=== PATIENT | male | born 1980 | race Caucasian/White ===

== ENCOUNTER 2017-06-07 10:45 | Emergency (ER) | payer MEDICARE, MEDICAID ==
[2017-06-07 10:53] VITALS: BP 148/97
--- NOTE | 2017-06-07 11:30 | ER Document Report ---
ED Psych Disorder / Suicide - General Chief Complaint: Psych Problem Stated Complaint: PSYCH EVAL Time Seen by Provider: 06/07/17 11:21 Mode of Arrival: Ambulatory Information source: Patient TRAVEL OUTSIDE OF THE [place] IN LAST 30 DAYS: No - HPI Patient complains to provider of: Other - carissa Onset: Other - Pt .has h/o BPD with carissa and has been out of his seroquel for several days. Is unable to get up with his mental health provider and is requesting a refill today. He denies SI or HI - Related Data Allergies/Adverse Reactions: No Known Allergies Allergy (Unverified 06/07/17 10:51) Past Medical History - Social History Smoking Status: Current Every Day Smoker Chew tobacco use (# tins/day): No Frequency of alcohol use: Occasional Drug Abuse: None Family History: None Patient has suicidal ideation: No Patient has homicidal ideation: No Renal/ Medical History: Denies: Hx Peritoneal Dialysis Psychiatric Medical History: Reports: Hx Bipolar Disorder Surgical Hx: Negative Review of Systems - Review of Systems Constitutional: No symptoms reported Cardiovascular: No symptoms reported Respiratory: No symptoms reported Gastrointestinal: No symptoms reported Musculoskeletal: No symptoms reported Neurological/Psychological: See HPI -: Yes All other systems reviewed and negative Physical Exam - Vital signs Vitals: Temp Pulse Resp BP Pulse Ox 98.3 F 70 18 148/97 H 99 06/07/17 10:52 06/07/17 10:52 06/07/17 10:52 06/07/17 10:52 06/07/17 10:52 - General General appearance: Appears well In distress: None - Respiratory Respiratory status: No respiratory distress Breath sounds: Normal - Cardiovascular Rhythm: Regular Heart sounds: Normal auscultation - Abdominal Inspection: Normal Tenderness: Nontender - Neurological Neuro grossly intact: Yes Cognition: Normal - Psychological Associated symptoms: Normal affect, Normal mood Course - Vital Signs Vital signs: Temp Pulse Resp BP Pulse Ox 98.3 F 70 18 148/97 H 99 06/07/17 10:52 06/07/17 10:52 06/07/17 10:52 06/07/17 10:52 06/07/17 10:52 Discharge - Discharge Clinical Impression: Medication refill Condition: Stable Disposition: HOME, SELF-CARE Additional Instructions: rest, take meds as prescribed, return if worse Prescriptions: Quetiapine Fumarate [Seroquel] 400 mg PO BID #60 tablet Referrals: REGINA VENTURA MD [NO LOCAL MD] - Follow up as needed
== END 2017-06-07 11:29 | disposition home or self-care (01) ==
LOC: ER 10:45
DX: Z76.0 Encounter for issue of repeat prescription (principal); F31.9 Bipolar disorder, unspecified; T43.596A Underdosing of other antipsychotics and neuroleptics, initial encounter; Z91.128 Patient's intentional underdosing of medication regimen for other reason; Z91.14 Patient's other noncompliance with medication regimen; F17.200 Nicotine dependence, unspecified, uncomplicated
CPT/HCPCS: 99283

== ENCOUNTER 2017-07-10 12:52 | Emergency (ER) | payer MEDICARE, MEDICAID ==
--- NOTE | 2017-07-10 14:20 | ER Document Report ---
ED Psych Disorder / Suicide - General Chief Complaint: Psych Problem Stated Complaint: MEDICATION REFILL Time Seen by Provider: 07/10/17 14:16 Notes: Patient is here for medication refill. Patient says he has a history of bipolar disorder and has been out of his bipolar medicines and wishes to have them refilled. He has a couple of bottles of pills that are from his primary care provider and have one refill left. He wants refills of his Depakote 500 mg twice a day, Seroquel 400 mg twice a day and trazodone 50 mg at bedtime. He also takes medication for hypertension and does not need that refilled. Patient denies any problems or complaints. TRAVEL OUTSIDE OF THE [place] IN LAST 30 DAYS: No - Related Data Allergies/Adverse Reactions: No Known Allergies Allergy (Verified 07/10/17 13:01) Past Medical History - Social History Smoking Status: Current Every Day Smoker Chew tobacco use (# tins/day): No Frequency of alcohol use: Occasional Drug Abuse: None Family History: None, Reviewed & Not Pertinent Psychiatric Medical History: Reports: Hx Bipolar Disorder, Hx Depression - Immunizations Hx Diphtheria, Pertussis, Tetanus Vaccination: Yes Review of Systems - Review of Systems Notes: REVIEW OF SYSTEMS: CONSTITUTIONAL : Denies fever. EENT: Denies eye, ear, nose or mouth or throat pain or other symptoms. CARDIOVASCULAR: Denies chest pain. RESPIRATORY: Denies cough, chest congestion, or shortness of breath. GASTROINTESTINAL: Denies abdominal pain or nausea, vomiting, or diarrhea. GENITOURINARY: Denies difficulty or painful urinating, urinary frequency, blood in urine. MUSCULOSKELETAL: Denies back or neck pain. Denies joint pain or swelling. SKIN: Denies rash or skin lesions. NEUROLOGICAL: Denies LOC or altered mental status. Denies headache. Denies sensory loss or motor deficits. ALL OTHER SYSTEMS REVIEWED AND NEGATIVE. Physical Exam - Vital signs Vitals: Temp Pulse Resp BP Pulse Ox 98.8 F 88 20 147/100 H 98 07/10/17 12:58 07/10/17 12:58 07/10/17 12:58 07/10/17 12:58 07/10/17 12:58 Interpretation: Normal - Notes Notes: PHYSICAL EXAMINATION: GENERAL: Well-appearing, in no acute distress. Somewhat anxious. Pleasant, cooperative HEAD: Atraumatic, normocephalic. EYES: Pupils equal round and reactive to light, extraocular movements intact. NECK: Normal range of motion, supple. LUNGS: Breath sounds clear and equal bilaterally. HEART: Regular rate and rhythm without murmurs. ABDOMEN: Soft, nontender. No guarding or rebound. BACK: No tenderness throughout entire back. EXTREMITIES: Normal range of motion without pain. NEUROLOGICAL: Normal speech, normal gait. Normal sensory, motor, and reflex exams. Awake, alert, and oriented x3. Cranial nerves normal. PSYCH: Normal mood, normal affect. SKIN: Warm, dry, no rashes. Course - Re-evaluation Re-evalutation: 07/10/17 21:17 I explained to the patient that we are not the proper source for him to receive his monthly medication prescriptions. However, what he going to do? I wrote the patient a prescription for 30 day supply of the 3 medicines she needed. - Vital Signs Vital signs: Temp Pulse Resp BP Pulse Ox 98.7 F 68 19 128/96 H 100 07/10/17 14:23 07/10/17 14:23 07/10/17 14:23 07/10/17 14:23 07/10/17 14:23 Discharge - Discharge Clinical Impression: Bipolar disorder Condition: Stable Disposition: HOME, SELF-CARE Additional Instructions: Bipolar Disorder Bipolar disorder is also called manic-depressive disorder. Depression alternates with brain hyperactivity called carissa. Each phase lasts from several days to a few weeks. We don't know exactly what causes bipolar disorder , but it's treatable. During the "manic phase," you may feel elated and energetic. You may have racing thoughts, rapid speech, increased activity, and grandiose ideas. During this time, you may not realize how poor your judgement is. Inappropriate spending, drug abuse, excessive alcohol use, marriage problems, and irresponsible sexual behavior are common during the manic phase. During the "depressive phase," you might feel depressed, guilty, worthless , fatigued, and unable to concentrate. You might have thoughts of suicide. Good treatments are available for bipolar disorder. [place] is a classic drug for bipolar disorder, and is still often useful. If the manic phase is very mild, an antidepressant alone can be prescribed. If the manic phase is very severe, an antipsychotic medicine (such as Haldol) may be needed. The treatment must be matched to your symptoms, so it's important to work closely with your psychiatric care provider. Contact your physician, the hospital emergency center, crisis line, or your counsellor if you are losing control or having self-destructive thoughts. FOLLOW-UP CARE: If you have been referred to a physician for follow-up care, call the physician s office for an appointment as you were instructed or within the next two days. If you experience worsening or a significant change in your symptoms, notify the physician immediately or return to the Emergency Department at any time for re-evaluation. I am refilling your prescriptions for your 3 bipolar medications for a month. We do not customarily write prescriptions for these medications and certainly not for this quantity of these medications so you need to make arrangements to get someone else to write her prescriptions in the future. Prescriptions: Trazodone HCl [Desyrel 50 mg Tablet] 50 mg PO QHS #30 tablet Divalproex Sodium [Depakote] 500 mg PO BID #60 tablet. Quetiapine Fumarate [Seroquel] 400 mg PO BID #60 tablet Referrals: NANCY BRAY MD [Primary Care Provider] - Follow up as needed
[2017-07-10 14:31] VITALS: BP 128/96
== END 2017-07-10 14:25 | disposition home or self-care (01) ==
LOC: ER 12:52
DX: Z76.0 Encounter for issue of repeat prescription (principal); F31.9 Bipolar disorder, unspecified; T42.6X6A Underdosing of other antiepileptic and sedative-hypnotic drugs, initial encounter; T43.596A Underdosing of other antipsychotics and neuroleptics, initial encounter; T43.216A Underdosing of selective serotonin and norepinephrine reuptake inhibitors, initial encounter; Z91.128 Patient's intentional underdosing of medication regimen for other reason; Z91.14 Patient's other noncompliance with medication regimen; F17.200 Nicotine dependence, unspecified, uncomplicated; I10 Essential (primary) hypertension; Z79.899 Other long term (current) drug therapy
CPT/HCPCS: 99281

== ENCOUNTER 2020-03-28 02:06 | Inpatient (IN) | payer MEDICARE, MEDICAID ==
[2020-03-28] MEDS ORDERED: ONDANSETRON HCL INJ/PF 4 MG/2 ML SDV IV ONE (03:32)
[2020-03-28] MEDS ORDERED: NORMAL SALINE 1000 ML 1,000 ML IV ONE ×2 (03:32→04:07)
--- NOTE | 2020-03-28 03:34 | ER Document Report ---
ED GI/ - General Chief Complaint: Nausea/Vomiting/Diarrhea Stated Complaint: STOMACH ISSUES Time Seen by Provider: 03/28/20 03:11 Notes: Patient is a 39-year-old male that comes emergency department for chief complaint of vomiting and some upper abdominal discomfort. He states that over the past day or so he has vomited 15 times. He states he had one loose stool. He denies hematemesis or hematochezia. Denies fever. He states symptoms started after "I drank half a gallon of some nasty orange juice". He denies any other complaints including chest pain, flank pain, lower abdominal pain, recent travel, suspicious foods otherwise. He denies any daily medications except his Seroquel and Depakote. He states he has bipolar disorder. TRAVEL OUTSIDE OF THE [place] IN LAST 30 DAYS: No - Related Data Allergies/Adverse Reactions: No Known Allergies Allergy (Verified 07/10/17 13:01) Home Medications: depakote. seroquel. cymbalta. trazodone Past Medical History - General Information source: Patient - Social History Smoking Status: Current Every Day Smoker Frequency of alcohol use: None Drug Abuse: None Lives with: Family Family History: None, Reviewed & Not Pertinent Patient has homicidal ideation: No Renal/ Medical History: Denies: Hx Peritoneal Dialysis Psychiatric Medical History: Reports: Hx Bipolar Disorder, Hx Depression - Immunizations Hx Diphtheria, Pertussis, Tetanus Vaccination: Yes Review of Systems - Review of Systems Constitutional: See HPI EENT: No symptoms reported Cardiovascular: No symptoms reported Respiratory: No symptoms reported Gastrointestinal: See HPI Genitourinary: No symptoms reported Male Genitourinary: No symptoms reported Musculoskeletal: No symptoms reported Skin: No symptoms reported Hematologic/Lymphatic: No symptoms reported Neurological/Psychological: No symptoms reported Physical Exam - Vital signs Vitals: Temp 98.0 F 03/28/20 02:07 - Notes Notes: GENERAL: Patient is slightly ill-appearing with dark cycles under his eyes but he is awake, interactive, does not appear to be in distress HEAD: Normocephalic, atraumatic. EYES: Pupils equal, round, and reactive to light. Extraocular movements intact. ENT: Oral mucosa parched, tongue midline. Oropharynx unremarkable. Airway patent. NECK: Full range of motion. Supple. Trachea midline. No lymphadenopathy. LUNGS: Clear to auscultation bilaterally, no wheezes, rales, or rhonchi. No respiratory distress. Non-tender chest wall. HEART: Regular rate and rhythm. No murmur ABDOMEN: Soft, non-tender. Non-distended. Bowel sounds present in all 4 quadrants. GENITOURINARY: Deferred EXTREMITIES: Moves all 4 extremities spontaneously. No edema, normal radial and dorsalis pedis pulses bilaterally. No cyanosis. BACK: no cervical, thoracic, lumbar midline tenderness. No saddle anesthesia, normal distal neurovascular exam. Moves all extremities in full range of motion. NEUROLOGICAL: Alert and oriented x3. Normal speech. Cranial nerves II through XII grossly intact. Strength 5/5 in all extremities. PSYCH: Slightly bizarre mood and affect SKIN: Slightly pale Course - Re-evaluation Re-evalutation: Patient is slightly ill-appearing but he is not tachycardic, hypotensive, or febrile. His abdomen is soft and benign. He has dark circles under his eyes and he has parched mucous membranes but otherwise his exam is unremarkable. CBC unremarkable. Chemistry shows marked hyperglycemia in the 900s, anion gap is 35, potassium is 5.4, bicarbonate is only 15. Venous blood gas obtained and shows pH of 7.19. Bicarbonate is low on venous blood gas. Clinical presentation and work-up is consistent with new onset type 1 diabetes with DKA. Patient has been given 2 L IV fluid normal saline bolus, he will be started on an insulin drip, be given lactated Ringer's, and he will require admission. However patient is not tachycardic, not in renal failure, does not have concerning the deranged electrolytes or EKG changes. Patient is also alert and oriented. I discussed with Dr. Stephens. He recommends admission to the hospitalist. Discussed with Dr. Silveira, patient accepted to [facility] full admission. - Vital Signs Vital signs: Temp Pulse Resp BP Pulse Ox 97.7 F 98 17 124/85 100 03/28/20 02:22 03/28/20 02:22 03/28/20 07:30 03/28/20 07:00 03/28/20 07:30 - Laboratory Result Diagrams: 03/28/20 03:02 03/28/20 03:02 Laboratory results interpreted by me: 03/28/20 03/28/20 03/28/20 03:02 03:02 03:02 RDW 14.8 H VBG pH VBG HCO3 Sodium 132.1 L Potassium 5.4 H Chloride 82 L Carbon Dioxide 15 L Anion Gap 35 H Glucose 956 H* Hemoglobin A1c % > 14.0 H Calcium 10.3 H Alkaline Phosphatase 165 H Albumin 5.4 H Urine Glucose (UA) Urine Ketones Urine Blood 03/28/20 03/28/20 04:20 04:58 RDW VBG pH 7.19 L* VBG HCO3 13.6 L Sodium Potassium Chloride Carbon Dioxide Anion Gap Glucose Hemoglobin A1c % Calcium Alkaline Phosphatase Albumin Urine Glucose (UA) >=500 H Urine Ketones 80 H Urine Blood SMALL H Discharge - Discharge Clinical Impression: DKA (diabetic ketoacidoses) Qualifiers: Diabetes mellitus type: type 1 Diabetes mellitus complication detail: without coma Qualified Code(s): E10.10 - Type 1 diabetes mellitus with ketoacidosis without coma Vomiting Qualifiers: Vomiting type: unspecified Vomiting Intractability: non-intractable Nausea presence: with nausea Qualified Code(s): R11.2 - Nausea with vomiting, unspecified Condition: Stable Disposition: ADMITTED INPATIENT Admitting Provider: Jordaan (Hospitalist) Unit Admitted: [facility]
[2020-03-28 03:41] LABS: ABSOLUTE BASOPHILS # (AUTO) 0.1 10^3/uL (0.0-0.2); ABSOLUTE LYMPHOCYTES (AUTO) 1.5 10^3/uL (0.5-4.7); ABSOLUTE MONOCYTES (AUTO) 0.8 10^3/uL (0.1-1.4); ABSOLUTE NEUT (AUTO) 7.2 10^3/uL (1.7-8.2); BASOPHILS % (AUTO) 0.7 % (0-2); HEMATOCRIT 43.1 % (37.9-51.0); HEMOGLOBIN 14.2 g/dL (13.5-17.0); LYMPHOCYTES % (AUTO) 15.2 % (13-45); MEAN CORPUSCULAR HEMOGLOBIN 30.8 pg (27.0-33.4); MEAN CORPUSCULAR VOLUME 93 fl (80-97); MONOCYTES % (AUTO) 8.6 % (3-13); PLATELET COUNT 268 10^3/uL (150-450); RED BLOOD COUNT 4.62 10^6/uL (4.35-5.55); RED CELL DISTRIBUTION WIDTH 14.8 % (11.5-14.0); SEGMENTED NEUTROPHILS % (AUTO) 75.5 % (42-78); TOTAL CELLS COUNTED % (AUTO) 100 %; WHITE BLOOD COUNT 9.6 10^3/uL (4.0-10.5)
[2020-03-28 03:51] LABS: ALBUMIN 5.4 g/dL (3.5-5.0); ALKALINE PHOSPHATASE 165 U/L (38-126); ASPARTATE AMINO TRANSFERASE 23 U/L (17-59); BILIRUBIN,DIRECT 0.2 mg/dL (0.0-0.4); BILIRUBIN,TOTAL 0.7 mg/dL (0.2-1.3); BLOOD UREA NITROGEN 20 mg/dL (7-20); CALCIUM 10.3 mg/dL (8.4-10.2); POTASSIUM 5.4 mmol/L (3.6-5.0); TOTAL PROTEIN 8.2 g/dL (6.3-8.2)
[2020-03-28 03:56] LABS: CARBON DIOXIDE 15 mmol/L (22-30); CHLORIDE 82 mmol/L (98-107)
[2020-03-28 04:05] LABS: GLUCOSE 956 mg/dL (75-110)
[2020-03-28] MEDS ORDERED: NORMAL SALINE 100 ML with INSULIN REGULAR, HUMAN 100 UNIT IV PRN ×2 (04:16)
[2020-03-28 04:36] LABS: ANION GAP 35 (5-19)
[2020-03-28] MEDS ORDERED: INSULIN REG, HUMAN 100 UNIT/ML 3 ML VIAL (PYX) ONE (04:36)
[2020-03-28 04:39] LABS: VENOUS BLOOD BASE EXCESS -13.6 mmol/L; VENOUS BLOOD HCO3 13.6 mmol/L (20-32); VENOUS BLOOD PCO2 36.3 mmHg (35-63)
[2020-03-28] MEDS ORDERED: RINGERS SOLUTION,LACTATED 1,000 ML IV ONE (04:44)
[2020-03-28 04:52] LABS: VENOUS BLOOD PH 7.19 (7.30-7.42)
[2020-03-28 05:21] LABS: APPEARANCE,URINE CLEAR; BILIRUBIN,URINE NEGATIVE (NEGATIVE); COLOR,URINE COLORLESS; GLUCOSE, URINE >=500 mg/dL (NEGATIVE); KETONES,URINE 80 mg/dL (NEGATIVE); LEUKOCYTE ESTERASE,URINE NEGATIVE (NEGATIVE); NITRITE,URINE NEGATIVE (NEGATIVE); PROTEIN,URINE NEGATIVE (NEGATIVE); URINE SPECIFIC GRAVITY 1.025; UROBILINOGEN,URINE NEGATIVE mg/dL (<2.0)
[2020-03-28] MEDS ORDERED: MAG HYDROX/AL HYDROX/SIMETH SUSP 30 ML UDCUP PO PRN (05:27)
[2020-03-28] MEDS ORDERED: LEVALBUTEROL HCL NEB 0.63 MG/3 ML AMPUL NEB PRN (05:27)
[2020-03-28] MEDS ORDERED: MAGNESIUM HYDROXIDE SUSP 30 ML UDCUP PO PRN (05:27)
[2020-03-28] MEDS ORDERED: GLUCAGON,HUMAN RECOMB 1 MG INJ IM PRN (05:27)
[2020-03-28] MEDS ORDERED: DEXTROSE 40% GEL 15 GM TUBE PO PRN ×2 (05:27)
[2020-03-28] MEDS ORDERED: RINGERS SOLUTION,LACTATED 1,000 ML IV PRN (05:27)
[2020-03-28] MEDS ORDERED: DEXTROSE 50%-WATER 25 GM/50 ML DISP.SYRIN IV PRN ×2 (05:27)
[2020-03-28] MEDS ORDERED: PROMETHAZINE HCL INJ 25 MG/1 ML VIAL IV PRN (05:27)
[2020-03-28] MEDS ORDERED: LORAZEPAM INJ 2 MG/1 ML VIAL IV PRN (05:33)
[2020-03-28] MEDS ORDERED: HYDRALAZINE HCL INJ/PF 20 MG/1 ML SDV IV PRN (05:33)
[2020-03-28] MEDS ORDERED: MORPHINE SULFATE 10 MG/ML INJ IV PRN ×3 (05:33)
[2020-03-28] MEDS ORDERED: ACETAMINOPHEN 650 MG SUPP.RECT PR PRN (05:33)
[2020-03-28] MEDS ORDERED: ACETAMINOPHEN 325 MG TABLET PO PRN (05:33)
[2020-03-28] MEDS ORDERED: GUAIFENESIN SYRP 200 MG/10 ML UDC PO PRN (05:33)
[2020-03-28] MEDS ORDERED: NICOTINE 21 MG/24 HR PATCH.TD24 TD PRN (05:33)
[2020-03-28 05:35] LABS: URINE AMPHETAMINES SCREEN NEGATIVE; URINE BARBITURATES SCREEN NEGATIVE; URINE BENZODIAZEPINES SCREEN NEGATIVE; URINE COCAINE SCREEN NEGATIVE; URINE MARIJUANA (THC) SCREEN NEGATIVE; URINE METHADONE SCREEN NEGATIVE; URINE PHENCYCLIDINE SCREEN NEGATIVE
[2020-03-28] MEDS ORDERED: DEXTROSE 5%-WATER 1000 ML 1,000 ML with SODIUM BICARBONATE 150 MEQ IV PRN ×2 (05:36)
--- NOTE | 2020-03-28 06:34 | PDOC H&P ---
History of Present Illness Admission Date/PCP: 03/28/20 05:03 No local PCP Patient complains of: Vomiting History of Present Illness: MARLENY TRUJILLO is a 39 year old male who presented to the emergency room with a 1 day history of vomiting. He admits that he has experienced at least 15 separate episodes of emesis and 1 episode of diarrhea over the last 24 hours. His emesis has been accompanied by constant nausea and seemed to come about after he drank some bad tasting orange juice. He denies other associated or accompanying signs and symptoms. He denies prior similar episodes. He denies identification of any additional aggravating or ameliorating factors for his vomiting. In the emergency room he was found to have a blood glucose of 936 with a potassium of 5.4 and a venous blood gas pH of 7.19. He was subsequently admitted to the hospital for further evaluation and treatment after initiation of therapy with an insulin infusion in the ER. Past Medical History Cardiac Medical History: Denies: Coronary Artery Disease, Myocardial Infarction, Hyperlipidema, Hypertension Pulmonary Medical History: Denies: Asthma, Chronic Obstructive Pulmonary Disease (COPD) EENT Medical History: Denies: Cataracts, Ears - Hearing aids Neurological Medical History: Denies: Migraine, Multiple Sclerosis, Seizures Endocrine Medical History: Denies: Diabetes Mellitus Type 1, Diabetes Mellitus Type 2, Hyperthyroidism, Hypothyroidism, Obesity Renal/ Medical History: Denies: Chronic Kidney Disease, Nephrolithiasis Malignancy Medical History: Reports: None GI Medical History: Denies: Cirrhosis, Crohn's Disease, Gastroesophageal Reflux Disease, Hepatitis, Peptic Ulcer Disease, Ulcerative Colitis Musculoskeltal Medical History: Denies: Arthritis, Gout Skin Medical History: Denies: Eczema, Psoriasis Psychiatric Medical History: Reports: Bipolar Disorder, Depression, Tobacco Dependency Denies: Alcohol Dependency, Substance Abuse Traumatic Medical History: Reports: None Hematology: Denies: Anemia, Bleeding Tendencies Infectious Medical History: Reports: None Past Surgical History Past Surgical History: Reports: None Social History Information Source: Patient Lives with: Homeless Smoking Status: Current Every Day Smoker Electronic Cigarette use?: No Frequency of Alcohol Use: None Hx Recreational Drug Use: No Drugs: None Hx Prescription Drug Abuse: No - Advance Directive Resuscitation Status: Full Code Surrogate healthcare decision maker:: Tila Torres Family History Family History: denies: CAD, DM, Hypertension, Malignancy Parental Family History Reviewed: Yes Children Family History Reviewed: No Sibling(s) Family History Reviewed.: Yes Medication/Allergy Home Medications: Quetiapine Fumarate [Seroquel] 400 mg PO BID #60 tablet 06/07/17 Divalproex Sodium [Depakote] 500 mg PO BID #60 tablet. 07/10/17 Quetiapine Fumarate [Seroquel] 400 mg PO BID #60 tablet 07/10/17 Trazodone HCl [Desyrel 50 mg Tablet] 50 mg PO QHS #30 tablet 07/10/17 Allergies/Adverse Reactions: No Known Allergies Allergy (Verified 07/10/17 13:01) Review of Systems Constitutional: ABSENT: chills, fever(s) Eyes: ABSENT: visual disturbances, other - Eye pain Ears: ABSENT: hearing changes, other - Ear pain Nose, Mouth, and Throat: ABSENT: headache(s), sore throat Cardiovascular: ABSENT: chest pain, palpitations Respiratory: ABSENT: cough, dyspnea Gastrointestinal: PRESENT: diarrhea, nausea, vomiting. ABSENT: abdominal pain, constipation, hematemesis, hematochezia, melena Genitourinary: ABSENT: difficulty urinating, dysuria, hematuria Musculoskeletal: ABSENT: back pain, joint swelling, muscle weakness Integumentary: ABSENT: pruritus, rash Neurological: ABSENT: confusion, convulsions, focal weakness, memory loss, syncope Psychiatric: ABSENT: anxiety, depression Endocrine: ABSENT: cold intolerance, heat intolerance, polydipsia, polyphagia, polyuria Hematologic/Lymphatic: ABSENT: easy bleeding, easy bruising Allergic/Immunologic: ABSENT: seasonal rhinorrhea Physical Exam Vital Signs: Temp Pulse Resp BP Pulse Ox 97.7 F 98 16 149/97 H 97 03/28/20 02:22 03/28/20 02:22 03/28/20 02:22 03/28/20 02:22 03/28/20 02:22 Intake & Output 03/26/20 03/27/20 03/28/20 23:59 23:59 23:59 Weight 79.379 kg General appearance: PRESENT: no acute distress, cooperative Head exam: PRESENT: atraumatic, normocephalic Eye exam: PRESENT: conjunctiva pink. ABSENT: conjunctival injection, scleral icterus Ear exam: PRESENT: normal external ear exam. ABSENT: bleeding, drainage Mouth exam: PRESENT: dry mucosa, neck supple Neck exam: ABSENT: thyromegaly, tracheal deviation Respiratory exam: PRESENT: clear to auscultation josef, symmetrical, unlabored Cardiovascular exam: PRESENT: RRR. ABSENT: clicks, gallop, rubs Pulses: PRESENT: normal radial pulses, normal dorsalis pedis pul Vascular exam: PRESENT: normal capillary refill. ABSENT: pallor GI/Abdominal exam: PRESENT: normal bowel sounds, soft. ABSENT: tenderness Rectal exam: PRESENT: deferred Extremities exam: ABSENT: joint swelling, pedal edema Musculoskeletal exam: ABSENT: deformity, dislocation Neurological exam: PRESENT: alert, oriented to person, oriented to place, oriented to time, oriented to situation, CN II-XII grossly intact. ABSENT: motor sensory deficit Psychiatric exam: PRESENT: appropriate affect, normal mood Skin exam: PRESENT: dry, intact, warm. ABSENT: jaundice, rash, urticaria Results Laboratory Results: 03/28/20 03:02 03/28/20 03:02 03/28/20 03/28/20 03/28/20 03:02 03:02 04:20 WBC 9.6 RBC 4.62 Hgb 14.2 Hct 43.1 MCV 93 MCH 30.8 MCHC 33.0 RDW 14.8 H Plt Count 268 Seg Neutrophils % 75.5 VBG pH 7.19 L* VBG pCO2 36.3 VBG HCO3 13.6 L VBG Base Excess -13.6 Sodium 132.1 L Potassium 5.4 H Chloride 82 L Carbon Dioxide 15 L Anion Gap 35 H BUN 20 Creatinine 1.24 Est GFR ( Amer) > 60 Glucose 956 H* Calcium 10.3 H Total Bilirubin 0.7 AST 23 Alkaline Phosphatase 165 H Total Protein 8.2 Albumin 5.4 H Lipase 159.9 Assessment and Plan - Diagnosis (1) Hyperglycemia without ketosis Is this a current diagnosis for this admission?: Yes (2) Metabolic acidosis Is this a current diagnosis for this admission?: Yes (3) Hyperkalemia Is this a current diagnosis for this admission?: Yes (4) Vomiting and diarrhea Is this a current diagnosis for this admission?: Yes (5) Bipolar disorder Qualifiers: Active/Remission status: remission status unspecified Qualified Code(s): F31.9 - Bipolar disorder, unspecified Is this a current diagnosis for this admission?: Yes - Plan Summary Summary: Patient is admitted to [facility] where he will receive routine supportive and symptomatic cares. He will be continued on insulin infusion until his blood sugar is well controlled and his anion gap has closed. He will be on a bicarbonate infusion. He will use Ativan 1 mg IV every 4 hours as needed for anxiety or restlessness. He will use morphine sulfate 2 to 4 mg IV every 2 hours on an as-needed basis for pain. Basic metabolic profiles will be performed every 6 hours. Hemoglobin A1c will be obtained. CBCs, metabolic profiles and magnesium levels will be performed as required. Patient will be treated with high-volume IV fluids initially and will be started on a diabetic diet. Smoking cessation is advised and counseled briefly at the bedside. A nicotine replacement patch is available for the patient's use, if desired. - Time Time Spent with patient: 15-24 minutes Smoking Cessation Education: 3 to 10 minutes Medications reviewed and adjusted accordingly: Yes Anticipated discharge: Other - Inpatient Certification Based on my medical assessment, after consideration of the patient's comorbidities, presenting symptoms, or acuity I expect that the services needed warrant INPATIENT care.: Yes I certify that my determination is in accordance with my understanding of Medicare's requirements for reasonable and necessary INPATIENT services [42 CFR 412.3e].: Yes Medical Necessity: Need Close Monitoring Due to Risk of Patient Decompensation, Need For IV Fluids, Need For Continuous Telemetry Monitoring, Risk of Complication if Not Cared For in Hospital
[2020-03-28] MEDS: NORMAL SALINE 100 ML with INSULIN REGULAR, HUMAN 100 UNIT IV PRN ×4 (07:17→14:16)
--- NOTE | 2020-03-28 07:55 | EKG REPORT ---
SEVERITY:- OTHERWISE NORMAL ECG - SINUS RHYTHM LEFT ATRIAL ABNORMALITY : Confirmed by: Adan Jefferson MD 28-Mar-2020 07:55:21
[2020-03-28] MEDS: DOCUSATE SODIUM 100 MG CAPSULE PO SCH ×2 (10:48→17:04)
[2020-03-28] MEDS: HEPARIN SOD (PORCINE) 5,000 UNIT/ML 1 ML VIAL SUBCUT SCH ×3 (10:48→21:55)
[2020-03-28] MEDS: FAMOTIDINE INJ/PF 20 MG/2 ML SDV IV SCH ×2 (12:19→21:55)
[2020-03-28] MEDS ORDERED: DEXTROSE 5%-NORMAL SALINE 1,000 ML IV PRN (13:30)
[2020-03-28 13:38] LABS: VENOUS BLOOD BASE EXCESS 0.3 mmol/L; VENOUS BLOOD HCO3 26.8 mmol/L (20-32); VENOUS BLOOD PCO2 50.4 mmHg (35-63); VENOUS BLOOD PH 7.34 (7.30-7.42)
[2020-03-28 13:57] LABS: BLOOD UREA NITROGEN 15 mg/dL (7-20); CALCIUM 9.7 mg/dL (8.4-10.2); CHLORIDE 103 mmol/L (98-107); GLUCOSE 212 mg/dL (75-110)
[2020-03-28 14:12] LABS: ANION GAP 11 (5-19)
[2020-03-28 14:14] LABS: CARBON DIOXIDE 25 mmol/L (22-30); POTASSIUM 4.1 mmol/L (3.6-5.0)
[2020-03-28] MEDS ORDERED: HUM INSULIN NPH/REG INSULIN HM 100 UNIT/1 ML 3 ML SUBCUT ONE (15:00)
[2020-03-28] MEDS: INSULIN LISPRO 100 UNIT/ML 3 ML VIAL SUBCUT SCH ×2 (17:04→21:56)
[2020-03-28 18:37] LABS: ANION GAP 10 (5-19); BLOOD UREA NITROGEN 15 mg/dL (7-20); CALCIUM 9.8 mg/dL (8.4-10.2); CARBON DIOXIDE 28 mmol/L (22-30); CHLORIDE 101 mmol/L (98-107); GLUCOSE 203 mg/dL (75-110); POTASSIUM 4.6 mmol/L (3.6-5.0)
[2020-03-28] MEDS: DIVALPROEX SODIUM 500 MG TAB.SR.24H PO SCH (21:55)
[2020-03-28] MEDS: TRAZODONE HCL 50 MG TABLET PO SCH (21:55)
[2020-03-28] MEDS ORDERED: QUETIAPINE FUMARATE 100 MG TABLET PO ONE ×3 (23:45)
[2020-03-29 00:55] LABS: ANION GAP 8 (5-19); BLOOD UREA NITROGEN 20 mg/dL (7-20); CALCIUM 8.9 mg/dL (8.4-10.2); CARBON DIOXIDE 25 mmol/L (22-30); CHLORIDE 99 mmol/L (98-107); GLUCOSE 376 mg/dL (75-110); POTASSIUM 3.9 mmol/L (3.6-5.0)
[2020-03-29] MEDS: HEPARIN SOD (PORCINE) 5,000 UNIT/ML 1 ML VIAL SUBCUT SCH ×3 (05:54→22:49)
[2020-03-29 06:56] LABS: HEMATOCRIT 36.1 % (37.9-51.0); HEMOGLOBIN 12.8 g/dL (13.5-17.0); MEAN CORPUSCULAR HEMOGLOBIN 31.2 pg (27.0-33.4); MEAN CORPUSCULAR HGB CONC 35.5 g/dL (32.0-36.0); PLATELET COUNT 167 10^3/uL (150-450); RED BLOOD COUNT 4.11 10^6/uL (4.35-5.55); RED CELL DISTRIBUTION WIDTH 15.1 % (11.5-14.0); WHITE BLOOD COUNT 6.1 10^3/uL (4.0-10.5)
[2020-03-29 06:58] LABS: MEAN CORPUSCULAR VOLUME 88 fl (80-97)
[2020-03-29 07:21] LABS: ANION GAP 12 (5-19); BLOOD UREA NITROGEN 17 mg/dL (7-20); CALCIUM 8.8 mg/dL (8.4-10.2); CARBON DIOXIDE 22 mmol/L (22-30); CHLORIDE 100 mmol/L (98-107); CHOLESTEROL 263.53 mg/dL (0-200); POTASSIUM 4.3 mmol/L (3.6-5.0)
[2020-03-29 07:32] LABS: DIRECT LDL 139 mg/dL (<100)
[2020-03-29 07:37] LABS: TRIGLYCERIDES 994 mg/dL (<150)
[2020-03-29 07:40] LABS: GLUCOSE 419 mg/dL (75-110)
[2020-03-29] MEDS: HUM INSULIN NPH/REG INSULIN HM 100 UNIT/1 ML 3 ML SUBCUT SCH (07:53)
[2020-03-29] MEDS: INSULIN LISPRO 100 UNIT/ML 3 ML VIAL SUBCUT SCH ×4 (07:53→22:50)
[2020-03-29] MEDS ORDERED: HUM INSULIN NPH/REG INSULIN HM 100 UNIT/1 ML 3 ML SUBCUT SCH ×4 (08:00→17:00)
[2020-03-29] MEDS: DIVALPROEX SODIUM 500 MG TAB.SR.24H PO SCH (09:38)
[2020-03-29] MEDS: FENOFIBRATE NANOCRYSTALLIZED 145 MG TABLET PO SCH (09:38)
[2020-03-29] MEDS: DOCUSATE SODIUM 100 MG CAPSULE PO SCH ×2 (09:38→17:08)
[2020-03-29] MEDS: FAMOTIDINE INJ/PF 20 MG/2 ML SDV IV SCH ×2 (09:38→22:50)
--- NOTE | 2020-03-29 09:43 | PDOC PROGRESS REPORT ---
Subjective Progress Note for:: 03/29/20 Subjective:: Patient feels better today. Nausea has resolved. States that he has been on seroquel for a couple years. Recently released from alf. Denies any fever or chills. States that he also takes depakote and cymbalta. Denies prior hx of DM. Reason For Visit: ACUTE METABOLIC ACIDOSIS,ACUTE HYPERGLYCEMIA,VOMIT Physical Exam Vital Signs: Temp Pulse Resp BP Pulse Ox 97.9 F 90 18 139/97 H 95 03/29/20 08:13 03/29/20 08:13 03/29/20 08:13 03/29/20 08:13 03/29/20 08:13 Intake & Output 03/28/20 03/29/20 03/30/20 06:59 06:59 06:59 Intake Total 4350 Output Total 300 Balance 4050 Weight 79.379 kg 82.5 kg General appearance: PRESENT: no acute distress, cooperative Neck exam: ABSENT: JVD Respiratory exam: PRESENT: clear to auscultation josef, unlabored. ABSENT: tachypnea, wheezes Cardiovascular exam: PRESENT: RRR, +S1, +S2. ABSENT: tachycardia GI/Abdominal exam: PRESENT: soft. ABSENT: distended, firm, guarding, rebound, rigid, tenderness Neurological exam: PRESENT: alert, awake, oriented to person, oriented to place, oriented to time, oriented to situation Psychiatric exam: PRESENT: unusual affect. ABSENT: agitated, anxious, homicidal ideation, manic, suicidal ideation Focused psych exam: ABSENT: internal stimuli Results Laboratory Results: 03/29/20 06:35 03/29/20 06:35 03/28/20 03/28/20 03/28/20 13:26 13:26 18:11 WBC RBC Hgb Hct MCV MCH MCHC RDW Plt Count VBG pH 7.34 VBG pCO2 50.4 VBG HCO3 26.8 VBG Base Excess 0.3 Sodium 139.0 139.3 Potassium 4.1 D 4.6 Chloride 103 101 Carbon Dioxide 25 D 28 Anion Gap 11 10 BUN 15 15 Creatinine 0.67 0.69 Est GFR ( Amer) > 60 > 60 Glucose 212 H 203 H Calcium 9.7 9.8 Magnesium Triglycerides Cholesterol LDL Cholesterol Direct HDL Cholesterol 03/29/20 03/29/20 03/29/20 00:22 06:35 06:35 WBC 6.1 RBC 4.11 L Hgb 12.8 L Hct 36.1 L MCV 88 D MCH 31.2 MCHC 35.5 RDW 15.1 H Plt Count 167 VBG pH VBG pCO2 VBG HCO3 VBG Base Excess Sodium 132.3 L 133.9 L Potassium 3.9 4.3 Chloride 99 100 Carbon Dioxide 25 22 Anion Gap 8 12 BUN 20 17 Creatinine 0.72 0.65 Est GFR ( Amer) > 60 > 60 Glucose 376 H 419 H* Calcium 8.9 8.8 Magnesium 2.0 Triglycerides 994 H Cholesterol 263.53 H LDL Cholesterol Direct 139 H HDL Cholesterol 22 L Assessment and Plan - Diagnosis (1) Diabetes mellitus, new onset Is this a current diagnosis for this admission?: Yes Plan: Likely precipitated by metabolic syndrome X. Suspect type II DM. Blood glucose uncontrolled this morning after snacking last night. 70/30 premixed insulin dose adjusted BIDAC, sliding scale insulin, Accu-Cheks and ADA diet. adaptive physical educator and dietitian consulted. (2) Metabolic syndrome X Is this a current diagnosis for this admission?: Yes Plan: Likely precipitated by chronic antipsychotic/Seroquel use. I have held Seroquel for now. Characterized by hyperlipidemia, new onset diabetes and severe hypertriglyce ridemia. Fenofibrate started. (3) Bipolar disorder Qualifiers: Active/Remission status: remission status unspecified Qualified Code(s): F31.9 - Bipolar disorder, unspecified Is this a current diagnosis for this admission?: Yes Plan: Continue with duloxetine and Depakote. Seroquel held given metabolic syndrome. Psychiatric consulted to see if need for alternate medication for management of patient's bipolar disorder. (4) Hypertension Qualifiers: Hypertension type: secondary to endocrine disorders Qualified Code(s): I15.2 - Hypertension secondary to endocrine disorders Is this a current diagnosis for this admission?: Yes Plan: We will monitor blood pressures today and if still elevated after today we will start on antihypertensive medication tomorrow. (5) DKA (diabetic ketoacidoses) Qualifiers: Diabetes mellitus type: type 1 Diabetes mellitus complication detail: without coma Qualified Code(s): E10.10 - Type 1 diabetes mellitus with ketoacidosis without coma Is this a current diagnosis for this admission?: Yes Plan: DKA seems to have resolved. Gap closed. Transition of insulin ip to subcutaneous yesterday. - Time Time Spent with patient: 15-24 minutes
[2020-03-29] MEDS ORDERED: DULOXETINE HCL 30 MG CAPSULE.DR PO SCH (10:00)
[2020-03-29] MEDS ORDERED: QUETIAPINE FUMARATE 100 MG TABLET PO SCH (10:00)
--- NOTE | 2020-03-29 15:09 | PSYCHOLOGICAL NOTE ---
Psych Note - Psych Note Date seen by psych provider: 03/29/20 Time seen by psych provider: 19:05 Psych Note: Reason for Consult: Medication recommendations Patient greets clinician is very pleasant and polite. He reports that he was receiving Seroquel in half-way however his last appointment he requested his prescription for trazodone because he was out of it. He states that he previously was not getting trazodone because he had so much. Patient states that he does not always need to take but since getting out of half-way, he didn't have any left. Clinician discussed with patient medication recommendations in which he confirms he understands and has no further questions or concerns. Patient reports he goes to [facility] and asks if he should continue with his current plan of care just with medication adjustments; clinician confirms. Patient states that he has been doing well no thoughts of harming himself or others and has not been seeing or hearing things. He reports that he just fixed his Nintendo switch so he has been playing video games to keep himself occupied. Patient is alert and orientated to person, place, time and circumstance. Mood is euthymic with congruent affect as evidenced by smiling engaging with clinician. Patient denies suicidal and homicidal ideation. Delusions are absent and behaviors congruent with an intact reality based presentation ie organized and linear thought process. Eye contact is well-maintained. Conversational speech is within normal rate, tone and prosody. Intellectual abilities appear to be within the average range. Attention and concentration are good. Insight, judgment, impulse control are fair. Chart review: Per external medication list, patient has not received a prescription for seroquel since May 2019 Medication recommendations per [facility]'s contracted psychiatrist Dr Contreras HANCOCK are as follows: Please discontinue cymbalta and trazaone Please decrease depakote to 125mg twice daily for 5 days then discontinue (Depakote can increase sugars) Please start Trileptal 300mg twice daily for 3 days then increase to 300mg three times daily Impression\plan: Patient is cleared from acute psychiatric services. Medication recommendations have been provided as requested. Patient was checked in on to ensure there is no further concerns or questions. Patient is very pleasant and polite; he engages appropriately and is actively engaged in his plan of care. At this time the patient is recommended to continue with his outpatient mental health provider, TEE Wei, upon discharge. Dr. Benton was consulted and the care management of this patient; attending physicians in agreement with recommendatio ns and disposition.
[2020-03-29] MEDS ORDERED: DIVALPROEX SODIUM 250 MG TAB.SR.24H PO SCH (22:00)
[2020-03-29] MEDS ORDERED: ATORVASTATIN CALCIUM 40 MG TABLET PO SCH (22:00)
[2020-03-29] MEDS: TRAZODONE HCL 50 MG TABLET PO SCH (22:48)
[2020-03-30] MEDS: HEPARIN SOD (PORCINE) 5,000 UNIT/ML 1 ML VIAL SUBCUT SCH (06:04)
[2020-03-30] MEDS ORDERED: PROMETHAZINE HCL INJ 25 MG/1 ML VIAL IV PRN (08:30)
[2020-03-30] MEDS: HUM INSULIN NPH/REG INSULIN HM 100 UNIT/1 ML 3 ML SUBCUT SCH (08:37)
[2020-03-30] MEDS: INSULIN LISPRO 100 UNIT/ML 3 ML VIAL SUBCUT SCH (08:43)
[2020-03-30] MEDS ORDERED: HUM INSULIN NPH/REG INSULIN HM 100 UNIT/1 ML 3 ML SUBCUT ONE (09:00)
[2020-03-30] MEDS: FENOFIBRATE NANOCRYSTALLIZED 145 MG TABLET PO SCH (09:47)
[2020-03-30] MEDS: DOCUSATE SODIUM 100 MG CAPSULE PO SCH (09:47)
--- NOTE | 2020-03-30 09:52 | PDOC DISCHARGE SUMMARY ---
Impression - Admit/DC Date/PCP Admission Date/Primary Care Provider: 03/28/20 05:03 Discharge Date: 03/30/20 - Discharge Diagnosis (1) Diabetes mellitus, new onset Is this a current diagnosis for this admission?: Yes (2) Metabolic syndrome X Is this a current diagnosis for this admission?: Yes (3) Bipolar disorder Is this a current diagnosis for this admission?: Yes (4) Hypertension Is this a current diagnosis for this admission?: Yes (5) DKA (diabetic ketoacidoses) Is this a current diagnosis for this admission?: Yes - Additional Information Resuscitation Status: Full Code Discharge Diet: Diabetic Discharge Activity: Activity As Tolerated Referrals: ANNCY BRAY MD [ACTIVE STAFF] - Prescriptions: Divalproex Sodium [Depakote Sprinkle 125 mg Capsule] 125 mg PO Q12 #6 cap.sprink Hum Insulin NPH/Reg Insulin Hm [Insulin 70-30 (NPH/Reg) 100 unit/mL] See Protocol SUBCUT BIDACBS #12 ml Lisinopril [Prinivil 10 mg Tablet] 10 mg PO DAILY #30 tablet Fenofibrate Nanocrystallized [Tricor 145 mg Tablet] 145 mg PO DAILY #60 tablet Oxcarbazepine [Trileptal 150 mg Tablet] 300 mg PO Q12 30 Days tablet Home Medications: Divalproex Sodium [Depakote Sprinkle 125 mg Capsule] 125 mg PO Q12 #6 cap.sprink 03/30/20 Fenofibrate Nanocrystallized [Tricor 145 mg Tablet] 145 mg PO DAILY #60 tablet 03/30/20 Hum Insulin NPH/Reg Insulin Hm [Insulin 70-30 (NPH/Reg) 100 unit/mL] See Protocol SUBCUT BIDACBS #12 ml 03/30/20 Lisinopril [Prinivil 10 mg Tablet] 10 mg PO DAILY #30 tablet 03/30/20 Oxcarbazepine [Trileptal 150 mg Tablet] 300 mg PO Q12 30 Days tablet 03/30/20 History of Present Illiness History of Present Illness: According to admitting provider: MARLENY TRUJILLO is a 39 year old male who presented to the emergency room with a 1 day history of vomiting. He admits that he has experienced at least 15 separate episodes of emesis and 1 episode of diarrhea over the last 24 hours. His emesis has been accompanied by constant nausea and seemed to come about after he drank some bad tasting orange juice. He denies other associated or accompanying signs and symptoms. He denies prior similar episodes. He denies identification of any additional aggravating or ameliorating factors for his vomiting. In the emergency room he was found to have a blood glucose of 936 with a potassium of 5.4 and a venous blood gas pH of 7.19. He was subsequently admitted to the hospital for further evaluation and treatment after initiation of therapy with an insulin infusion in the ER. Hospital Course Hospital Course: DKA (diabetic ketoacidoses) Qualifiers: Diabetes mellitus type: type 1 Diabetes mellitus complication detail: without coma Qualified Code(s): E10.10 - Type 1 diabetes mellitus with ketoacidosis without coma Is this a current diagnosis for this admission?: Yes Plan: Admitted for DKA with anion gap of 36 on presentation and pH of 7.19 with high anion gap metabolic acidosis. Started on insulin drip. Gap closed and patient was transitioned off insulin drip to subcutaneous insulin. Diabetes mellitus, new onset Is this a current diagnosis for this admission?: Yes Plan: Likely precipitated by metabolic syndrome X. Suspect type II DM. Hemoglobin A1c over 14. Patient has been started on NPH/regular insulin 70/30 and discharged on 25 units before breakfast and 18 units before dinner. Patient received diabetic education and dietary consultation. He was taught how to administer insulin. Patient was given prescriptions for glucometer and insulin syringes, Accu-Cheks and set up for follow-up appointment with a primary care provider. Metabolic syndrome X Is this a current diagnosis for this admission?: Yes Plan: Likely precipitated by chronic antipsychotic/Seroquel and Depakote use. Characterized by hyperlipidemia, new onset diabetes and severe hypertriglyceridemia. Fenofibrate started. Psychiatry was consulted and recommended discontinuation of Seroquel, trazodone and Cymbalta. Also recommended weaning off Depakote over 3 days and starting patient on Trileptal. Bipolar disorder Qualifiers: Active/Remission status: remission status unspecified Qualified Code(s): F31.9 - Bipolar disorder, unspecified Is this a current diagnosis for this admission?: Yes Plan: Plan as above Hypertension Qualifiers: Hypertension type: secondary to endocrine disorders Qualified Code(s): I15.2 - Hypertension secondary to endocrine disorders Is this a current diagnosis for this admission?: Yes Plan: Started on lisinopril 10 mg daily. Physical Exam Vital Signs: Temp Pulse Resp BP Pulse Ox 98.9 F 70 16 138/92 H 97 03/30/20 02:00 03/30/20 07:00 03/30/20 02:00 03/30/20 02:00 03/30/20 02:00 Intake & Output 03/29/20 03/30/20 03/31/20 06:59 06:59 06:59 Intake Total 4350 1678 Output Total 300 Balance 4050 1678 Weight 82.5 kg 82.5 kg General appearance: PRESENT: no acute distress, cooperative Mouth exam: PRESENT: neck supple Respiratory exam: PRESENT: unlabored GI/Abdominal exam: PRESENT: soft. ABSENT: tenderness Neurological exam: PRESENT: alert, awake Psychiatric exam: ABSENT: agitated, anxious Focused psych exam: ABSENT: internal stimuli, pressured speech Results Laboratory Results: WBC 6.1 10^3/uL (4.0-10.5) 03/29/20 06:35 RBC 4.11 10^6/uL (4.35-5.55) L 03/29/20 06:35 Hgb 12.8 g/dL (13.5-17.0) L 03/29/20 06:35 Hct 36.1 % (37.9-51.0) L 03/29/20 06:35 MCV 88 fl (80-97) D 03/29/20 06:35 MCH 31.2 pg (27.0-33.4) 03/29/20 06:35 MCHC 35.5 g/dL (32.0-36.0) 03/29/20 06:35 RDW 15.1 % (11.5-14.0) H 03/29/20 06:35 Plt Count 167 10^3/uL (150-450) 03/29/20 06:35 Lymph % (Auto) 15.2 % (13-45) 03/28/20 03:02 [place] % (Auto) 8.6 % (3-13) 03/28/20 03:02 Eos % (Auto) 0.0 % (0-6) 03/28/20 03:02 Baso % (Auto) 0.7 % (0-2) 03/28/20 03:02 Absolute Neuts (auto) 7.2 10^3/uL (1.7-8.2) 03/28/20 03:02 Absolute Lymphs (auto) 1.5 10^3/uL (0.5-4.7) 03/28/20 03:02 Absolute Monos (auto) 0.8 10^3/uL (0.1-1.4) 03/28/20 03:02 Absolute Eos (auto) 0.0 10^3/uL (0.0-0.6) 03/28/20 03:02 Absolute Basos (auto) 0.1 10^3/uL (0.0-0.2) 03/28/20 03:02 Seg Neutrophils % 75.5 % (42-78) 03/28/20 03:02 VBG pH 7.34 (7.30-7.42) 03/28/20 13:26 VBG pCO2 50.4 mmHg (35-63) 03/28/20 13:26 VBG HCO3 26.8 mmol/L (20-32) 03/28/20 13:26 VBG Base Excess 0.3 mmol/L 03/28/20 13:26 Sodium 133.9 mmol/L (137-145) L 03/29/20 06:35 Potassium 4.3 mmol/L (3.6-5.0) 03/29/20 06:35 Chloride 100 mmol/L (98-107) 03/29/20 06:35 Carbon Dioxide 22 mmol/L (22-30) 03/29/20 06:35 Anion Gap 12 (5-19) 03/29/20 06:35 BUN 17 mg/dL (7-20) 03/29/20 06:35 Creatinine 0.65 mg/dL (0.52-1.25) 03/29/20 06:35 Est GFR ( Amer) > 60 (>60) 03/29/20 06:35 Est GFR (MDRD) Non-Af > 60 (>60) 03/29/20 06:35 Glucose 419 mg/dL (75-110) H* 03/29/20 06:35 POC Glucose 324 mg/dL (70-110) H 03/30/20 08:25 Hemoglobin A1c % > 14.0 % (4.7-6.0) H 03/28/20 03:02 Calcium 8.8 mg/dL (8.4-10.2) 03/29/20 06:35 Magnesium 2.0 mg/dL (1.6-2.3) 03/29/20 06:35 Total Bilirubin 0.7 mg/dL (0.2-1.3) 03/28/20 03:02 Direct Bilirubin 0.2 mg/dL (0.0-0.4) 03/28/20 03:02 Neonat Total Bilirubin Not Reportable 03/28/20 03:02 Neonat Direct Bilirubin Not Reportable 03/28/20 03:02 Neonat Indirect Bili Not Reportable 03/28/20 03:02 AST 23 U/L (17-59) 03/28/20 03:02 ALT 16 U/L (<50) 03/28/20 03:02 Alkaline Phosphatase 165 U/L (38-126) H 03/28/20 03:02 Total Protein 8.2 g/dL (6.3-8.2) 03/28/20 03:02 Albumin 5.4 g/dL (3.5-5.0) H 03/28/20 03:02 Triglycerides 994 mg/dL (<150) H 03/29/20 06:35 Cholesterol 263.53 mg/dL (0-200) H 03/29/20 06:35 LDL Cholesterol Direct 139 mg/dL (<100) H 03/29/20 06:35 VLDL Cholesterol, Calc UNABLE TO CALCULATE 03/29/20 06:35 HDL Cholesterol 22 mg/dL (>40) L 03/29/20 06:35 Lipase 159.9 U/L (23-300) 03/28/20 03:02 Urine Color COLORLESS 03/28/20 04:58 Urine Appearance CLEAR 03/28/20 04:58 Urine pH 5.0 (5.0-9.0) 03/28/20 04:58 Ur Specific [place] 1.025 03/28/20 04:58 Urine Protein NEGATIVE mg/dL (NEGATIVE) 03/28/20 04:58 Urine Glucose (UA) >=500 mg/dL (NEGATIVE) H 03/28/20 04:58 Urine Ketones 80 mg/dL (NEGATIVE) H 03/28/20 04:58 Urine Blood SMALL (NEGATIVE) H 03/28/20 04:58 Urine Nitrite NEGATIVE (NEGATIVE) 03/28/20 04:58 Urine Bilirubin NEGATIVE (NEGATIVE) 03/28/20 04:58 Urine Urobilinogen NEGATIVE mg/dL (<2.0) 03/28/20 04:58 Ur Leukocyte Esterase NEGATIVE (NEGATIVE) 03/28/20 04:58 Urine WBC (Auto) 0 /HPF 03/28/20 04:58 Urine Mucus (Auto) RARE /LPF 03/28/20 04:58 Urine Ascorbic Acid NEGATIVE (NEGATIVE) 03/28/20 04:58 Urine Opiates Screen NEGATIVE 03/28/20 04:58 Urine Methadone Screen NEGATIVE 03/28/20 04:58 Ur Barbiturates Screen NEGATIVE 03/28/20 04:58 Ur Phencyclidine Scrn NEGATIVE 03/28/20 04:58 Ur Amphetamines Screen NEGATIVE 03/28/20 04:58 U Benzodiazepines Scrn NEGATIVE 03/28/20 04:58 Urine Cocaine Screen NEGATIVE 03/28/20 04:58 U Marijuana (THC) Screen NEGATIVE 03/28/20 04:58 Plan Time Spent: Greater than 30 Minutes Stroke Is this a Stroke Patient?: No Acute Heart Failure - Is this a Heart Failure Patient?: No
[2020-03-30] MEDS ORDERED: FAMOTIDINE 20 MG TABLET PO SCH (10:00)
[2020-03-30] MEDS ORDERED: DIVALPROEX SODIUM 125 MG CAP.SPRINK PO SCH (10:00)
[2020-03-30] MEDS ORDERED: OXCARBAZEPINE 150 MG TABLET PO SCH (10:00)
[2020-03-30] MEDS ORDERED: LISINOPRIL 10 MG TABLET PO SCH (10:00)
[2020-03-30 11:16] VITALS: BP 138/92
== END 2020-03-30 12:20 | disposition home or self-care (01) | DRG 639 ==
LOC: ER 02:06 → EH 05:03 → 3W 10:01
PROVIDERS: ADMIT Emergency Medicine; ATTEND Internal Medicine
DX: E10.10 Type 1 diabetes mellitus with ketoacidosis without coma (principal); E87.5 Hyperkalemia; E88.81 Metabolic syndrome and other insulin resistance; F31.9 Bipolar disorder, unspecified; I15.2 Hypertension secondary to endocrine disorders; F17.210 Nicotine dependence, cigarettes, uncomplicated; Z59.0 Homelessness; Z79.899 Other long term (current) drug therapy
CPT/HCPCS: 36415; 80048; 80053; 80061; 80307; 81001; 82803; 82962; 83036; 83690; 83735; 85025; 85027; 93005; 93010; 96361; 96374; 99284; J1644; J1815; J2405; J3490; J7030; J7042; J7050; J7120; S0028

== ENCOUNTER 2020-09-06 21:21 | Emergency (ER) | payer MEDICARE, MEDICAID ==
[2020-09-06 22:00] LABS: ABSOLUTE BASOPHILS # (AUTO) 0.1 10^3/uL (0.0-0.2); ABSOLUTE EOSINOPHILS # (AUTO) 0.1 10^3/uL (0.0-0.6); ABSOLUTE LYMPHOCYTES (AUTO) 3.4 10^3/uL (0.5-4.7); ABSOLUTE MONOCYTES (AUTO) 0.8 10^3/uL (0.1-1.4); ABSOLUTE NEUT (AUTO) 8.8 10^3/uL (1.7-8.2); BASOPHILS % (AUTO) 0.5 % (0-2); EOSINOPHILS % (AUTO) 0.7 % (0-6); HEMATOCRIT 39.3 % (37.9-51.0); HEMOGLOBIN 13.5 g/dL (13.5-17.0); LYMPHOCYTES % (AUTO) 25.6 % (13-45); MEAN CORPUSCULAR HEMOGLOBIN 29.9 pg (27.0-33.4); MEAN CORPUSCULAR HGB CONC 34.3 g/dL (32.0-36.0); MEAN CORPUSCULAR VOLUME 87 fl (80-97); MONOCYTES % (AUTO) 5.9 % (3-13); PLATELET COUNT 290 10^3/uL (150-450); RED CELL DISTRIBUTION WIDTH 14.5 % (11.5-14.0); SEGMENTED NEUTROPHILS % (AUTO) 67.3 % (42-78); TOTAL CELLS COUNTED % (AUTO) 100 %; WHITE BLOOD COUNT 13.1 10^3/uL (4.0-10.5)
[2020-09-06 22:17] LABS: ACETAMINOPHEN < 10 ug/mL (10-30); ALBUMIN 4.5 g/dL (3.5-5.0); ALCOHOL < 10 mg/dL (NONE DETECTED); ALKALINE PHOSPHATASE 61 U/L (38-126); ANION GAP 9 (5-19); ASPARTATE AMINO TRANSFERASE 23 U/L (17-59); BILIRUBIN,DIRECT 0.3 mg/dL (0.0-0.4); BILIRUBIN,TOTAL 0.4 mg/dL (0.2-1.3); BLOOD UREA NITROGEN 14 mg/dL (7-20); CALCIUM 10.2 mg/dL (8.4-10.2); CARBON DIOXIDE 29 mmol/L (22-30); CHLORIDE 103 mmol/L (98-107); GLUCOSE 127 mg/dL (75-110); POTASSIUM 4.1 mmol/L (3.6-5.0); SALICYLATE < 1.0 mg/dL (2.0-20.0); TOTAL PROTEIN 6.9 g/dL (6.3-8.2)
[2020-09-06 22:45] LABS: APPEARANCE,URINE SLIGHTLY-CLOUDY; BILIRUBIN,URINE NEGATIVE (NEGATIVE); COLOR,URINE YELLOW; GLUCOSE, URINE NEGATIVE (NEGATIVE); KETONES,URINE NEGATIVE (NEGATIVE); LEUKOCYTE ESTERASE,URINE NEGATIVE (NEGATIVE); NITRITE,URINE NEGATIVE (NEGATIVE); PROTEIN,URINE NEGATIVE (NEGATIVE); URINE SPECIFIC GRAVITY 1.006; UROBILINOGEN,URINE NEGATIVE mg/dL (<2.0)
[2020-09-06 23:06] LABS: URINE AMPHETAMINES SCREEN NEGATIVE; URINE BARBITURATES SCREEN NEGATIVE; URINE BENZODIAZEPINES SCREEN NEGATIVE; URINE COCAINE SCREEN NEGATIVE; URINE MARIJUANA (THC) SCREEN NEGATIVE; URINE METHADONE SCREEN NEGATIVE; URINE PHENCYCLIDINE SCREEN NEGATIVE
--- NOTE | 2020-09-06 23:20 | ER Document Report ---
ED Psych Disorder / Suicide - General Chief Complaint: confusion Stated Complaint: PSYCH Time Seen by Provider: 09/06/20 21:39 Mode of Arrival: Medic Information source: Emergency Med Personnel Notes: 39-year-old male patient insulin dependent diabetic with history of bipolar disorder presenting to the emergency department with mental health issues. His roommate apparently called EMS as he was being combative and confused and altered. His roommate states he has been refusing to take his mental health medications lately. TRAVEL OUTSIDE OF THE [place] IN LAST 30 DAYS: No - Related Data Allergies/Adverse Reactions: No Known Allergies Allergy (Verified 07/10/17 13:01) Home Medications: meds in locker Past Medical History - General Information source: [facility] Records - Social History Smoking Status: Current Every Day Smoker Family History: Other - Unable to obtain due to patient's status. - Past Medical History Cardiac Medical History: Reports: Hx Hypertension Endocrine Medical History: Reports: Hx Diabetes Mellitus Type 2 Psychiatric Medical History: Reports: Hx Bipolar Disorder, Hx Depression - Immunizations Hx Diphtheria, Pertussis, Tetanus Vaccination: Yes Review of Systems - Review of Systems -: Yes ROS unobtainable due to patient's medical condition Physical Exam - Vital signs Vitals: Temp Pulse Resp BP Pulse Ox 98.5 F 63 20 146/80 H 100 09/06/20 21:58 09/06/20 21:58 09/06/20 21:58 09/06/20 21:58 09/06/20 21:58 - Notes Notes: PHYSICAL EXAMINATION: GENERAL: Appears to be manic/disheveled. HEAD: Atraumatic, normocephalic. EYES: Pupils equal round and reactive to light, extraocular movements intact, sclera anicteric, conjunctiva are normal. ENT: Nares patent, oropharynx clear without exudates. Moist mucous membranes. NECK: Normal range of motion. LUNGS: Breath sounds clear to auscultation bilaterally and equal. No wheezes rales or rhonchi. HEART: Regular rate and rhythm without murmurs ABDOMEN: Soft, nontender, nondistended abdomen. No guarding, no rebound. No masses appreciated. Musculoskeletal: Normal range of motion. No cyanosis. NEUROLOGICAL: No obvious neurological deficits noted. PSYCH: Pressured speech, randomly SKIN: Warm, Dry. Course - Re-evaluation Re-evalutation: At the time of arrival patient is speaking nonsensical, he is a flight of ideas. He is trying to elope from his room out the ambulance bay. He was ultimately redirected into his room where I attempted to interview him. He appears to be manic. I did review his chart, he does have a history of bipolar with carissa as well as insulin-dependent diabetes. Laboratory 09/06/20 09/06/20 09/06/20 21:43 21:43 21:50 WBC 13.1 H RBC 4.50 Hgb 13.5 Hct 39.3 MCV 87 MCH 29.9 MCHC 34.3 RDW 14.5 H Plt Count 290 Lymph % (Auto) 25.6 [place] % (Auto) 5.9 Eos % (Auto) 0.7 Baso % (Auto) 0.5 Absolute Neuts (auto) 8.8 H Absolute Lymphs (auto) 3.4 Absolute Monos (auto) 0.8 Absolute Eos (auto) 0.1 Absolute Basos (auto) 0.1 Seg Neutrophils % 67.3 Sodium 141.0 Potassium 4.1 Chloride 103 Carbon Dioxide 29 Anion Gap 9 BUN 14 Creatinine 0.67 Est GFR ( Amer) > 60 Est GFR (MDRD) Non-Af > 60 Glucose 127 H Calcium 10.2 Total Bilirubin 0.4 Direct Bilirubin 0.3 Neonat Total Bilirubin Not Reportable Neonat Direct Bilirubin Not Reportable Neonat Indirect Bili Not Reportable AST 23 ALT 25 Alkaline Phosphatase 61 Total Protein 6.9 Albumin 4.5 Urine Color YELLOW Urine Appearance SLIGHTLY-CLOUDY Urine pH 8.0 Ur Specific [place] 1.006 Urine Protein NEGATIVE Urine Glucose (UA) NEGATIVE Urine Ketones NEGATIVE Urine Blood NEGATIVE Urine Nitrite NEGATIVE Urine Bilirubin NEGATIVE Urine Urobilinogen NEGATIVE Ur Leukocyte Esterase NEGATIVE Urine WBC (Auto) 1 Urine RBC (Auto) 0 Urine Bacteria (Auto) 1+ Urine Mucus (Auto) RARE Urine Ascorbic Acid NEGATIVE Salicylates < 1.0 L Urine Opiates Screen Urine Methadone Screen Acetaminophen < 10 L Ur Barbiturates Screen Ur Phencyclidine Scrn Ur Amphetamines Screen U Benzodiazepines Scrn Urine Cocaine Screen U Marijuana (THC) Screen Serum Alcohol < 10 09/06/20 21:50 WBC RBC Hgb Hct MCV MCH MCHC RDW Plt Count Lymph % (Auto) [place] % (Auto) Eos % (Auto) Baso % (Auto) Absolute Neuts (auto) Absolute Lymphs (auto) Absolute Monos (auto) Absolute Eos (auto) Absolute Basos (auto) Seg Neutrophils % Sodium Potassium Chloride Carbon Dioxide Anion Gap BUN Creatinine Est GFR ( Amer) Est GFR (MDRD) Non-Af Glucose Calcium Total Bilirubin Direct Bilirubin Neonat Total Bilirubin Neonat Direct Bilirubin Neonat Indirect Bili AST ALT Alkaline Phosphatase Total Protein Albumin Urine Color Urine Appearance Urine pH Ur Specific [place] Urine Protein Urine Glucose (UA) Urine Ketones Urine Blood Urine Nitrite Urine Bilirubin Urine Urobilinogen Ur Leukocyte Esterase Urine WBC (Auto) Urine RBC (Auto) Urine Bacteria (Auto) Urine Mucus (Auto) Urine Ascorbic Acid Salicylates Urine Opiates Screen NEGATIVE Urine Methadone Screen NEGATIVE Acetaminophen Ur Barbiturates Screen NEGATIVE Ur Phencyclidine Scrn NEGATIVE Ur Amphetamines Screen NEGATIVE U Benzodiazepines Scrn NEGATIVE Urine Cocaine Screen NEGATIVE U Marijuana (THC) Screen NEGATIVE Serum Alcohol Laboratory investigations today are reassuring. He does have a mildly elevated white count of 13.1. CBC otherwise unremarkable. Chemistry reassuring, glucose 127. No evidence of diabetic ketoacidosis. Tox screen was negative. Patient has been compliant, staying in his room after the initial elopement attempts. He is on IVC petition due to risk of self injury. According to his roommate he has been noncompliant with his medications. Patient did get very agitated, was banging on the glass doors and was attempting to flip the stretcher over. He had to be chemically restrained. He has now been resting comfortably with no issues. He is medically cleared and pending mental health evaluation. - Vital Signs Vital signs: Temp Pulse Resp BP Pulse Ox 98.5 F 63 20 146/80 H 100 09/06/20 22:20 09/06/20 21:58 09/06/20 21:58 09/06/20 21:58 09/06/20 21:58 - Laboratory Result Diagrams: 09/06/20 21:43 09/06/20 21:43 Laboratory results interpreted by me: 09/06/20 09/06/20 21:43 21:43 WBC 13.1 H RDW 14.5 H Absolute Neuts (auto) 8.8 H Glucose 127 H Salicylates < 1.0 L Acetaminophen < 10 L - EKG Interpretation by [place] EKG shows normal: Sinus rhythm, Intervals Rate: Bradycardia When compared to previous EKG there are: No significant change Discharge - Discharge Clinical Impression: Psychiatric problem Condition: Stable Disposition: PSYCH HOSP/UNIT
[2020-09-07] MEDS: OXCARBAZEPINE 150 MG TABLET PO SCH ×3 (00:24→21:55)
[2020-09-07 01:13] LABS: VENOUS BLOOD BASE EXCESS 2.9 mmol/L; VENOUS BLOOD HCO3 30.8 mmol/L (20-32); VENOUS BLOOD PCO2 61.8 mmHg (35-63); VENOUS BLOOD PH 7.32 (7.30-7.42)
[2020-09-07] MEDS ORDERED: NICOTINE 21 MG/24 HR PATCH.TD24 TD ONE (03:06)
[2020-09-07] MEDS ORDERED: LORAZEPAM INJ 2 MG/1 ML VIAL IM ONE (03:07)
[2020-09-07] MEDS ORDERED: HALOPERIDOL LACTATE INJ 5 MG/1 ML VIAL IM ONE (03:07)
[2020-09-07] MEDS ORDERED: DIPHENHYDRAMINE HCL 50 MG/ML VIAL IM ONE (03:07)
--- NOTE | 2020-09-07 08:49 | ER Document Report ---
Doctor's Note Notes: 09/07/20 08:49 Patient sleeping, will round on patient later this morning. 09/07/20 11:00 PHYSICAL EXAMINATION: GENERAL: Sleeping, arouses easily to voice HEAD: Atraumatic, normocephalic. EYES: sclera anicteric, conjunctiva are normal. ENT: nares patent. Moist mucous membranes. NECK: Normal range of motion, supple without lymphadenopathy LUNGS: CTAB and equal. No wheezes rales or rhonchi. HEART: Regular rate and rhythm without murmurs EXTREMITIES: Normal range of motion, no pitting edema. No cyanosis. BACK: No CVA tenderness NEUROLOGICAL: Cranial nerves grossly intact. Normal speech. PSYCH: Patient with tangential speech, patient with paranoid delusions concerned that people are attempting to cause him to have diabetes SKIN: Warm, Dry, normal turgor, no rashes or lesions noted Patient appears medically clear for transfer pending behavioral health team disposition. Patient denies any other complaints at this time. 09/07/20 17:06 Patient agitated, yelling at staff and trying to walk out of the room. Patient was redirectable back to his room and was willing to speak with this provider. Patient continues with flights of ideas and occasional paranoid delusions. Consulted with Adele with the behavioral health team regarding need for medication to prevent patient's behaviors from escalating. 09/07/20 18:00 Patient resting quietly on stretcher, we will continue to monitor at this time. 09/07/20 20:32 Report and handoff given to Maribel Greenfield NP
--- NOTE | 2020-09-07 08:58 | EKG REPORT ---
SEVERITY:- OTHERWISE NORMAL ECG - SINUS RHYTHM LEFT AXIS DEVIATION : Confirmed by: Lizzie Zarate 07-Sep-2020 08:57:26
--- NOTE | 2020-09-07 12:37 | PSYCHOLOGICAL NOTE ---
Psych Note - Psych Note Date seen by psych provider: 09/07/20 Time seen by psych provider: 12:13 - Evaluation with patient from [id number]. Psych Note: Patient is a 39 year old male who presented to the Emergency Department last evening via EMS for altered mental status. He has a reported history of Bipolar II and Anxiety. Roommate told EMS patient was refusing to take his medications (Latuda, Trilpetal). 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 He was put on a 24 Hour Petition for Evaluation. Patient was sleeping. It took saying his name a few times and gently shaking lower extremity for him to wake up. He quickly became alert. He was not forth coming when asked questions. He often asked them back or rephrased them. He admitted people are after him, mentioned the Terminator, when informed the Terminator is fictional he then talked about how silly it is they keep trying to make new movies. He confirmed he had been going to [facility] "for a little while." He admitted he stopped taking his medications and when asked if negative side effects he said "yes." He questioned everything this clinician said and how it was said. When informed home medications would be restarted he stated "of course you guys are giving me the medication trying to kill me." Patient was alert and oriented to self and place. Mood was irritable with congruent affect. He presented paranoid and guarded as evidenced by questioning everything this clinician said and being vague in answers. He denied current suicidal and homicidal. Patient did not appear to be responding to internal stimuli as evidenced by fair eye contact and answering questions when addres sed, however endorsed paranoia and persecutory delusions (saying the hospital and medical staff were trying to poisoning him by giving him home medications). Thought processes were disorganized. Conversational speech was somewhat pressured. Intellectual abilities are estimated to be average. Insight, judgment and impulse control were poor as evidenced by irritability and psychosis (persecutory delusions). Chart review revealed patient told medical staff they planned to inject him with toxic substances, that he was in the hospital because his face was removed and transplanted, he tried to leave and security/medical staff were able to redirect, then at 0331 he stood in his doorway saying he wanted his things and to leave/became agitated/displayed being suspicious and guarded/started yelling/laughing/jumping up and down saying the hospital is not going to keep him here and again accused medical staff of trying to poison him. This resulted in medication stabilization (Benadryl, Haldol, Ativan Intramuscular). he has been seen in the emergency department previously for mental health related issues. Clinical Presentation: Psychosis- paranoia, persecutory delusions Noncompliant with medication History of Bipolar II Impression/Plan: Recommendation for FULL Involuntary Commitment. Patient presented irritable, guarded, paranoid, and endorsed persecutory delusions. Both he and roommate noted patient stopped taking his medication. He has a reported history of Bipolar II. Consulted with Dr. Benton regarding the management and care of patient. ED Physician in agreement with recommendations.
[2020-09-07] MEDS ORDERED: CHLORPROMAZINE HCL INJ 25 MG/1 ML AMPULE IM ONE (17:06)
[2020-09-07] MEDS ORDERED: METFORMIN HCL 500 MG TABLET PO SCH (18:00)
--- NOTE | 2020-09-07 21:45 | ER Document Report ---
Doctor's Note Notes: 09/07/20 21:45 Nursing staff notified me that the patient is refusing to take his Trileptal and cholesterol medication. A told her that this was fine the patient could refuse.
[2020-09-07] MEDS ORDERED: ZIPRASIDONE MESYLATE INJ/PF 20 MG SDV IM ONE (21:59)
[2020-09-07] MEDS ORDERED: ATORVASTATIN CALCIUM 20 MG TABLET PO SCH (22:00)
--- NOTE | 2020-09-08 09:20 | ER Document Report ---
Doctor's Note Notes: 09/08/20 09:18 Rounded on patient. He came in about 36 hours ago with acute psychosis. He was IVC 8 and now he has a bed at [place]. He will be transported shortly. Went and saw the patient. He states he is doing well this morning. He is eaten his breakfast well. He is still very tangential in his thought. He talks about how people are chasing him and trying to kill him. He also states how the words on the milk carton are changing in 2 different languages in front of his eyes. He also states that he has ants crawling on him and biting him. He is not linear in his thought process at all. However he is friendly and cooperative this morning. He is stable for transfer to [place].
[2020-09-08] MEDS ORDERED: ZIPRASIDONE MESYLATE INJ/PF 20 MG SDV IM ONE (09:23)
[2020-09-08] MEDS: OXCARBAZEPINE 150 MG TABLET PO SCH (09:50)
[2020-09-08] MEDS ORDERED: LISINOPRIL 10 MG TABLET PO SCH (10:00)
[2020-09-08 10:07] VITALS: BP 147/99
== END 2020-09-08 10:09 ==
LOC: ER 21:21
DX: Z04.6 Encounter for general psychiatric examination, requested by authority (principal); F23 Brief psychotic disorder; I10 Essential (primary) hypertension; E11.9 Type 2 diabetes mellitus without complications; F17.200 Nicotine dependence, unspecified, uncomplicated; D72.829 Elevated white blood cell count, unspecified; R00.1 Bradycardia, unspecified; Z91.14 Patient's other noncompliance with medication regimen
CPT/HCPCS: 93005; 99285; 96372; 36415; 82962; 80307 ×4; 85025; 80053; 81001; 82803; 93010; J3230; J1200; J1630; J2060; J3486; A9270 ×3

== ENCOUNTER 2020-10-07 21:00 | Emergency (ER) | payer MEDICARE, MEDICAID ==
--- NOTE | 2020-10-07 21:28 | ER Document Report ---
ED Medical Screen (RME) - General Chief Complaint: Foot Pain Stated Complaint: FEET PAIN ON SOLES AND TOES Time Seen by Provider: 10/07/20 21:16 Mode of Arrival: Ambulatory Information source: Patient Notes: HPI; 39-year-old male with multiple mental health issues and diabetes presents to the emergency room complaining of pain and tingling to his feet for the past several months. States he was diagnosed with diabetes back in April stopped taking his medications about 2 months ago because he was concerned that his insulin was actually methamphetamines. He is also still complaining of visual hallucinations. States when he is watching movies the actors appear to be from different countries and not the actors that he feels should be in that particular movie. States he was recently discharged 1 week ago from [place] for mental health issues. He denies any suicidal or homicidal ideation. PE: Alert and oriented x3. Flat affect, cooperative. Denies suicidal homicidal ideation. Lungs: Clear to auscultation without rales, rhonchi, wheezes. Heart: Tachycardic without murmurs, rubs, gallops. I have greeted and performed a rapid initial assessment of this patient. A comprehensive ED assessment and evaluation of the patient, analysis of test results and completion of the medical decision making process will be conducted by additional ED providers. I have specifically instructed the patient or family members with the patient to immediately return to any nursing staff should anything change in the patient's condition or with their chief complaint. TRAVEL OUTSIDE OF THE [place] IN LAST 30 DAYS: No - Related Data Allergies/Adverse Reactions: No Known Allergies Allergy (Verified 07/10/17 13:01) Home Medications: haldol, seroquel Past Medical History - Social History Frequency of alcohol use: None Drug Abuse: Cocaine, Marijuana, Methamphetamine, Other - Past Medical History Cardiac Medical History: Reports: Hx Hypertension Denies: Hx Coronary Artery Disease, Hx Heart Attack, Hx Hypercholesterolemia Pulmonary Medical History: Denies: Hx Asthma, Hx COPD Neurological Medical History: Denies: Hx Migraine, Hx Seizures Endocrine Medical History: Reports: Hx Diabetes Mellitus Type 2. Denies: Hx Diabetes Mellitus Type 1, Hx Hyperthyroidism, Hx Hypothyroidism Renal/ Medical History: Denies: Hx Peritoneal Dialysis GI Medical History: Denies: Hx Cirrhosis, Hx Crohn's Disease, Hx Gastroesophageal Reflux Disease, Hx Hepatitis, Hx Ulcerative Colitis Musculoskeltal Medical History: Denies Hx Arthritis, Denies Hx Gout Skin Medical History: Denies Hx Eczema, Denies Hx Psoriasis Psychiatric Medical History: Reports: Hx Bipolar Disorder, Hx Depression Infectious Medical History: Denies: Hx Hepatitis - Immunizations Hx Diphtheria, Pertussis, Tetanus Vaccination: Yes Physical Exam - Vital signs Vitals: Temp Pulse Resp BP Pulse Ox 98.4 F 118 H 16 137/89 H 97 10/07/20 21:07 10/07/20 21:07 10/07/20 21:07 10/07/20 21:07 10/07/20 21:07 Course - Vital Signs Vital signs: Temp Pulse Resp BP Pulse Ox 98.4 F 118 H 16 137/89 H 97 10/07/20 21:07 10/07/20 21:07 10/07/20 21:07 10/07/20 21:07 10/07/20 21:07
[2020-10-07 22:13] LABS: ABSOLUTE BASOPHILS # (AUTO) 0.1 10^3/uL (0.0-0.2); ABSOLUTE EOSINOPHILS # (AUTO) 0.1 10^3/uL (0.0-0.6); ABSOLUTE LYMPHOCYTES (AUTO) 2.7 10^3/uL (0.5-4.7); ABSOLUTE MONOCYTES (AUTO) 0.7 10^3/uL (0.1-1.4); ABSOLUTE NEUT (AUTO) 4.3 10^3/uL (1.7-8.2); BASOPHILS % (AUTO) 0.8 % (0-2); EOSINOPHILS % (AUTO) 1.8 % (0-6); HEMATOCRIT 31.2 % (37.9-51.0); HEMOGLOBIN 10.8 g/dL (13.5-17.0); LYMPHOCYTES % (AUTO) 33.7 % (13-45); MEAN CORPUSCULAR HEMOGLOBIN 30.4 pg (27.0-33.4); MEAN CORPUSCULAR HGB CONC 34.6 g/dL (32.0-36.0); MEAN CORPUSCULAR VOLUME 88 fl (80-97); MONOCYTES % (AUTO) 8.4 % (3-13); PLATELET COUNT 368 10^3/uL (150-450); RED BLOOD COUNT 3.54 10^6/uL (4.35-5.55); RED CELL DISTRIBUTION WIDTH 15.9 % (11.5-14.0); SEGMENTED NEUTROPHILS % (AUTO) 55.3 % (42-78); TOTAL CELLS COUNTED % (AUTO) 100 %; WHITE BLOOD COUNT 7.9 10^3/uL (4.0-10.5)
[2020-10-07 22:20] LABS: APPEARANCE,URINE SLIGHTLY-CLOUDY; BILIRUBIN,URINE NEGATIVE (NEGATIVE); COLOR,URINE AMBER; GLUCOSE, URINE NEGATIVE (NEGATIVE); KETONES,URINE NEGATIVE (NEGATIVE); LEUKOCYTE ESTERASE,URINE NEGATIVE (NEGATIVE); NITRITE,URINE NEGATIVE (NEGATIVE); PROTEIN,URINE NEGATIVE (NEGATIVE); URINE SPECIFIC GRAVITY 1.013; UROBILINOGEN,URINE NEGATIVE mg/dL (<2.0)
--- NOTE | 2020-10-07 22:20 | ER Document Report ---
ED General - General Chief Complaint: Foot Pain Stated Complaint: FEET PAIN ON SOLES AND TOES Time Seen by Provider: 10/07/20 21:16 Mode of Arrival: Ambulatory Notes: Patient is a 39-year-old male with a history of paranoid schizophrenia and insulin-dependent diabetes that comes emergency department for chief complaint of wanting mental health assistance. He states he presented to [facility] and they referred him to the emergency department. He states that he feels like he needs to be in a place that he "feels safe and can talk to people who know what to do for me". He states that he does not feel safe because his primary care physician, the people at the [employer], and even grocery associate when he calls him are "all part of the same plot to get my money". He states he went to the [employer], everyone was staring at him, and when he told the manager investment banking his Social Security number she looked at him "like my number didn't exist anymore". He states he started to wonder if the people around him were actually there. He states that he was brought to [place] by a friend after he went to an AA meeting. He states he has been compliant with his Haldol and his Seroquel but he did not go back to his primary care to refill his insulin. He states that he was not sure that he was actually being insulin and he was scared of what he might be shooting into himself. He denies recreational drugs, alcohol. He states that he is getting intermittent tingling sensations in his feet bilaterally that has been going on for several months. He denies vomiting, fever, chest pain, or any other complaints. TRAVEL OUTSIDE OF THE [place] IN LAST 30 DAYS: No - Related Data Allergies/Adverse Reactions: No Known Allergies Allergy (Verified 07/10/17 13:01) Home Medications: haldol, seroquel Past Medical History - General Information source: Patient - Social History Smoking Status: Current Every Day Smoker Frequency of alcohol use: None Drug Abuse: Cocaine, Marijuana, Methamphetamine, Other Family History: Other - Unable to obtain due to patient's status. Patient has homicidal ideation: No - Past Medical History Cardiac Medical History: Reports: Hx Hypertension Denies: Hx Coronary Artery Disease, Hx Heart Attack, Hx Hypercholesterolemia Pulmonary Medical History: Denies: Hx Asthma, Hx COPD Neurological Medical History: Denies: Hx Migraine, Hx Seizures Endocrine Medical History: Reports: Hx Diabetes Mellitus Type 2. Denies: Hx Diabetes Mellitus Type 1, Hx Hyperthyroidism, Hx Hypothyroidism Renal/ Medical History: Denies: Hx Peritoneal Dialysis GI Medical History: Denies: Hx Cirrhosis, Hx Crohn's Disease, Hx Gastroesophageal Reflux Disease, Hx Hepatitis, Hx Ulcerative Colitis Musculoskeletal Medical History: Denies Hx Arthritis, Denies Hx Gout Skin Medical History: Denies Hx Eczema, Denies Hx Psoriasis Psychiatric Medical History: Reports: Hx Bipolar Disorder, Hx Depression Infectious Medical History: Denies: Hx Hepatitis - Immunizations Hx Diphtheria, Pertussis, Tetanus Vaccination: Yes Review of Systems - Review of Systems Constitutional: See HPI EENT: No symptoms reported Cardiovascular: No symptoms reported Respiratory: No symptoms reported Gastrointestinal: No symptoms reported Genitourinary: No symptoms reported Male Genitourinary: No symptoms reported Musculoskeletal: See HPI Skin: See HPI Hematologic/Lymphatic: No symptoms reported Neurological/Psychological: See HPI Physical Exam - Vital signs Vitals: Temp Pulse Resp BP Pulse Ox 98.4 F 118 H 16 137/89 H 97 10/07/20 21:07 10/07/20 21:07 10/07/20 21:07 10/07/20 21:07 10/07/20 21:07 - Notes Notes: GENERAL: Alert, interacts well. No acute distress. Somewhat disheveled in appearance HEAD: Normocephalic, atraumatic. EYES: Pupils equal, round, and reactive to light. Extraocular movements intact. ENT: Oral mucosa moist, tongue midline. Oropharynx unremarkable. Airway patent. LUNGS: Clear to auscultation bilaterally, no wheezes, rales, or rhonchi. No respiratory distress. Non-tender chest wall. HEART: Regular rate and rhythm. No murmur ABDOMEN: Soft, non-tender. Non-distended. EXTREMITIES: Moves all 4 extremities spontaneously. No edema, normal radial and dorsalis pedis pulses bilaterally. No cyanosis. BACK: no cervical, thoracic, lumbar midline tenderness. No saddle anesthesia, n ormal distal neurovascular exam. Moves all extremities in full range of motion. NEUROLOGICAL: Alert and oriented x3. Normal speech. Cranial nerves II through XII grossly intact. Strength 5/5 in all extremities. PSYCH: Patient occasionally will speak anxiously, he has tangential thoughts, paranoid statements, however he does not appear to be responding to internal stimuli, he is cooperative. Insight appears poor SKIN: Warm, dry, normal turgor. No rashes or lesions noted. Course - Re-evaluation Re-evalutation: Patient makes statements that are consistent with paranoid schizophrenia although he is calm, cooperative, and is not dangerously acutely psychotic. He is not homicidal, suicidal, or obviously responding to internal stimuli. As result I do not feel the patient meets IVC criteria at this time. Patient referred to concerns about his uncontrolled diabetes but hyperglycemia is not severe and he is not acidotic. He is also not tachycardic on my exam. In regards to complaints of paresthesias patient does not have any noted neurovascular deficits and ambulates without difficulty. CBC nonspecific, chemistry nonspecific otherwise, urinalysis unremarkable, urine drug screen negative, alcohol and tox screen negative. Patient is requesting mental health assistance in consult, he states he feels like he needs placement. Patient will remain here voluntarily, patient is medically cleared pending mental health e valuation. - Vital Signs Vital signs: Temp Pulse Resp BP Pulse Ox 97.6 F 90 18 125/76 95 10/08/20 01:17 10/08/20 01:17 10/08/20 01:17 10/08/20 01:17 10/08/20 01:17 - Laboratory Result Diagrams: 10/07/20 21:53 10/07/20 21:53 Laboratory results interpreted by me: 10/07/20 10/07/20 10/07/20 21:53 21:53 21:53 RBC 3.54 L Hgb 10.8 L Hct 31.2 L RDW 15.9 H Glucose 127 H Urine Ascorbic Acid 40 H Salicylates < 1.0 L Acetaminophen < 10 L - EKG Interpretation by Me Additional EKG results interpreted by me: EKG shows borderline sinus tachycardia at a rate of 101, borderline prolonged QT interval at 488, normal axis, no T wave inversions or ST segment changes in consecutive leads Discharge - Discharge Clinical Impression: Paranoid schizophrenia, Delusions Condition: Stable Disposition: PSYCH HOSP/UNIT
[2020-10-07 22:28] LABS: ACETAMINOPHEN < 10 ug/mL (10-30); ALBUMIN 4.2 g/dL (3.5-5.0); ALCOHOL < 10 mg/dL (NONE DETECTED); ALKALINE PHOSPHATASE 69 U/L (38-126); ANION GAP 10 (5-19); ASPARTATE AMINO TRANSFERASE 25 U/L (17-59); BILIRUBIN,DIRECT 0.1 mg/dL (0.0-0.4); BILIRUBIN,TOTAL 0.3 mg/dL (0.2-1.3); BLOOD UREA NITROGEN 9 mg/dL (7-20); CALCIUM 9.9 mg/dL (8.4-10.2); CARBON DIOXIDE 28 mmol/L (22-30); CHLORIDE 102 mmol/L (98-107); GLUCOSE 127 mg/dL (75-110); POTASSIUM 4.1 mmol/L (3.6-5.0); SALICYLATE < 1.0 mg/dL (2.0-20.0); TOTAL PROTEIN 6.4 g/dL (6.3-8.2)
[2020-10-07 22:33] LABS: URINE AMPHETAMINES SCREEN NEGATIVE; URINE BARBITURATES SCREEN NEGATIVE; URINE BENZODIAZEPINES SCREEN NEGATIVE; URINE COCAINE SCREEN NEGATIVE; URINE MARIJUANA (THC) SCREEN NEGATIVE; URINE METHADONE SCREEN NEGATIVE; URINE PHENCYCLIDINE SCREEN NEGATIVE
--- NOTE | 2020-10-08 09:05 | EKG REPORT ---
SEVERITY:- BORDERLINE ECG - SINUS TACHYCARDIA BORDERLINE PROLONGED QT INTERVAL : Confirmed by: Lizzie Zarate 08-Oct-2020 09:04:29
--- NOTE | 2020-10-08 11:16 | PSYCHOLOGICAL NOTE ---
Psych Note - Psych Note Date seen by psych provider: 10/08/20 Time seen by psych provider: 10:30 Psych Note: Reason for Consult: reported paranoia, patient reported Substance abuse, patient requested Inpatient Consent Permissions: none provided Patient arrived to [facility] ED via POV for medical concerns and requesting inpatient psychiatric treatment. Patient reports he was released from [facility] on the seventh and then went to his outpatient mental health provider with [facility] discuss the medications that he would like to continue and the ones that he felt he no longer needed. Patient was continued on Haldol and Seroquel by [facility] on 10/02/2020. Patient reports that he needs to inpatient psychiatric treatment like seen in the movie "One flew over the cuckoo's nest." When was questioned on why he would want to go to a place depicted in the movie where people were abused, he disclosed he "did not see that part" and states that he would not want that to happen. Patient reports that he does not want a place like that but needs to go inpatient "that is for life you known like an asylum." When patient learned that asylum's for lifetime commitment is no longer available, patient reports that he needs to go somewhere for substance abuse treatment. Patient confirms he has not used any drugs "right now" but still needs substance abuse treatment (Clinician notes previous visits to [facility] ED indicates patient is always presented with negative tox screen). Patient confirms he would like the resources because his digital marketing officer was supposed to help him with getting this information and he has not. Patient reports he is homeless. He denies any other concerns at this time. Patient presented to [facility] ED after attempting voluntary placement at [facility]; he did not meet criteria. Patient is alert and orientated to person, place, time and circumstance. Mood is euthymic with congruent affect. Patient denies suicidal and homicidal ideations. Mother was concerned patient was demonstrating paranoid delusions, patient is not verbalizing any thoughts at this time. Behaviors congruent with an intact reality based presentation i.e. organized and linear thought process. Thought content is focused on social needs. Eye contact was well maintained. Conversational speech is within normal rate, tone and prosody. Intellectual abilities appear to be within the average range. Attention and concentration is fair. Insight, judgment, impulse control is fair. Clinical Presentation: Homeless IVC Criteria per [place] GS 122C Dangerous to others Within the relevant past the individual No has inflicted or attempted to inflict or threatened to inflict serious bodily harm on another AND No that there is a reasonable probability that this conduct will be repeated. OR No has acted in such a way as to create a substantial risk of serious bodily harm to another AND No that there is a reasonable probability that this conduct will be repeated. OR No has engaged in extreme destruction of property AND NO that there is a reasonable probability that this conduct will be repeated. Previous episodes of dangerousness to others, when applicable, may be considered when determining reasonable probability of future dangerous conduct. Clear, cogent, and convincing evidence that an individual has committed a homicide in the relevant past is prima facie evidence of dangerousness to others. Dangerous to self Within the relevant past the individual has done any of the following: acted in such a way as to show ALL of the following: No The individual would be unable without care, supervision, and the continued assistance of others not otherwise available, to exercise self- control, judgment, and discretion in the conduct of the individual's daily responsibilities and social relations or to satisfy the individual's need for nourishment, personal or medical care, intermediate, or self-protection and safety. AND No There is a reasonable probability of the individual suffering serious ph ysical debilitation within the near future unless adequate treatment is given. A showing of behavior that is grossly irrational, of actions that the individual is unable to control, of behavior that is grossly inappropriate to the situation, or of other evidence of severely impaired insight and judgment shall create a prima facie inference that the individual is unable to care for himself or herself. OR No has attempted suicide or threatened suicide AND No that there is a reasonable probability of suicide unless adequate treatment is given OR No has mutilated himself or herself or attempted to mutilate himself or herself AND No that there is a reasonable probability of serious self-mutilation unless adequate treatment is given. NOTE: Previous episodes of dangerousness to self, when applicable, may be considered when determining reasonable probability of physical debilitation, suicide, or self-mutilation. Impression\\plan: Patient is cleared from acute psychiatric services. Patient reports he would like resources for long-term substance use treatment. Patient initially was requesting long-term/lifetime psychiatric commitment however after learning that this is was not an option he reported substance abuse and the need for treatment. Patient presented first to [facility] however was declined due to not meeting criteria. Patient continues not to meet criteria for involuntary commitment. Patient has an outpatient mental health provider with [facility]. He recently was released from inpatient psychiatric treatment at [facility] on the and has already followed up with his outpatient provider on the . There was concern upon initial presentation the patient was demonstrating delusions of paranoia. Patient did not demonstrate any of the delusional thought processes during evaluation. There is concern the patient's thought content is very focused on social needs and is demonstrating difficulty with problem-solving and connection to obtaining those needs. Clinician provided psychoeducation on the importance of using inpatient psychiatric treatment for psychiatric needs. Patient was provided local resources of [facility] providers which includes mobile crisis contact information, detox facilities and long-term residential treatment options, per his request. Patient is recommended to continue working with his outpatient mental health provider [facility] and his digital marketing officer in obtaining any further resources or programs. Dr. Benton was consulted to care management of this patient; attending physicians in agreement with recommendations and disposition.
--- NOTE | 2020-10-08 12:25 | ER Document Report ---
Doctor's Note Notes: 10/08/20 12:18 Constitutional: Nontoxic appearance, no acute distress Eyes: Nonicteric, extraocular movements intact, sclera clear Cardiovascular: Rate and rhythm regular, no JVD Respiratory: Breath sounds clear bilaterally, nonlabored breathing, no use of accessory muscles, no tachypnea Gastrointestinal: Abdomen not distended Muculoskeletal: Moves all extremities well Skin: Normal color Neuro: Awake alert oriented, normal speech Psych: Normal mood and affect Patient does not meet IVC criteria per behavioral health team members. Plan for discharge at this time, patient is agreeable with this discharge plan of care.
[2020-10-08 12:31] VITALS: BP 117/71
== END 2020-10-08 12:31 | disposition home or self-care (01) ==
LOC: ER 21:00
DX: F32.9 Major depressive disorder, single episode, unspecified (principal); Z59.0 Homelessness; M79.673 Pain in unspecified foot; M79.676 Pain in unspecified toe(s); F17.200 Nicotine dependence, unspecified, uncomplicated; I10 Essential (primary) hypertension; E11.9 Type 2 diabetes mellitus without complications
CPT/HCPCS: 36415; 80053; 80307; 81001; 82962; 85025; 93005; 93010; 99285